=== PATIENT | male | born 1995 | race Caucasian/White ===

== ENCOUNTER 2017-04-22 05:32 | Observation (INO) | payer BC ==
[2017-04-22] VITALS (11 sets, daily range): BP systolic 136–153; BP diastolic 75–88; PULSE 75–97; TEMP 98–99.2
[~2017-04-22] VITALS: Ht 180.3 cm; Wt 88.3 kg
[~2017-04-22 05:32] MED LIST: NO HOME MEDICATIONS
[2017-04-22] MEDS ORDERED: HUMIRA40 MG/0.1 SQ (05:39)
[2017-04-22 06:19] LABS: BASO # 0.1 (0.0-0.2); BASO % 0.4 % (0.0-2.0); EOS # 0.1 (0.0-0.7); EOS % 0.9 % (0-4.0); GRAN # 11.2 (1.4-6.5); GRAN % 79.4 % (42.2-75.2); HEMOGLOBIN 16.2 g/dl (13.5-18.0); LYMPH # 1.2 (1.2-3.4); LYMPH % 8.4 % (20.0-51.0); MEAN CELL VOLUME 86 fl (80.0-100.0); MEAN CORPUSCULAR HEMOGLOBIN 30 pg (27.0-31.0); MEAN CORPUSCULAR HGB CONC 35 g/dl (33.0-37.0); MEAN PLATELET VOLUME 11.9 fl (7.4-10.4); MONO # 1.4 (0.1-0.6); PLATELET COUNT 193 K/mm3 (130-400); RED BLOOD COUNT 5.47 M/mm3 (4.20-5.60); REDCELL DISTRIBUTION WIDTH-CV 12.3 % (11.5-14.5); WHITE BLOOD COUNT 14.1 K/mm3 (4.8-10.8)
[2017-04-22 06:20] LABS: PH 7 (5-8); SQUAMOUS EPITHELIAL None Seen /hpf; URINE APPEARANCE Clear; URINE BACTERIA None Seen /hpf; URINE BILIRUBIN Negative (NEGATIVE); URINE BLOOD Negative (NEGATIVE); URINE COLOR Yellow; URINE GLUCOSE Negative (NEGATIVE); URINE KETONE Negative (NEGATIVE); URINE RBC 0-2 /hpf; URINE UROBILINOGEN Negative (NEGATIVE); URINE WBC 0-2 /hpf
[2017-04-22 07:07] LABS: ADJUSTED CALCIUM 8.8 mg/dL (8.4-10.2); ALBUMIN 4.8 gm/dL (3.5-5.0); BILIRUBIN,TOTAL 0.7 mg/dL (0.0-1.0); C-REACTIVE PROTEIN 1.7 mg/dL (0.0-0.9); CALCIUM 9.4 mg/dL (8.4-10.2); CREATININE, serum 0.8 mg/dL (0.66-1.25); POTASSIUM 4.6 mmol/L (3.4-5.0); TOTAL PROTEIN 8.2 gm/dL (6.4-8.2)
[2017-04-22] MEDS ORDERED: ROXICODONE 55 MG/TAB PO (14:17)
== END 2017-04-22 19:45 | disposition home or self-care (01) ==
LOC: COL.ER 05:32 → SURG 07:32
PROVIDERS: Emergency Medicine
DX: K35.80 Unspecified acute appendicitis (principal); L40.9 Psoriasis, unspecified
CPT/HCPCS: J0694; J1100; J1170; J1885; J2405; J2543; J2704; J2710; J3010; J7030; J7050; J7120; Q9967